=== PATIENT | male | born 1975 | race Caucasian/White ===

== ENCOUNTER 2023-03-14 21:28 | Emergency (ER) | payer OTHER ==
[2023-03-14 21:48] VITALS: BP 117/69; PULSE 64; RESP 18; TEMP 98.5; BMI 26.4
[2023-03-14] MEDS ORDERED: LIDOCAINE 5% TOPICAL PATCH TP ONE (22:19)
[2023-03-14] MEDS ORDERED: ACETAMINOPHEN 500 MG TABLET (FP) PO ONE (22:19)
[2023-03-14] MEDS ORDERED: KETOROLAC TROMETHAMINE 30 MG/1 ML VIAL IM ONE (22:19)
[2023-03-14] MEDS ORDERED: LIDOCAINE 5% TOPICAL PATCH ONE (22:47)
[2023-03-14] MEDS ORDERED: KETOROLAC TROMETHAMINE 30 MG/1 ML VIAL ONE (22:47)
[2023-03-14] MEDS ORDERED: ACETAMINOPHEN 500 MG TABLET (FP) ONE (22:49)
[2023-03-15] MEDS ORDERED: LIDOCAINE PATCH REMOVAL MC SCH (10:00)
== END 2023-03-15 00:08 | disposition home or self-care (01) ==
LOC: JER 21:28
PROC: 3E0233Z Introduction of Anti-inflammatory into Muscle, Percutaneous Approach (ICD-10-PCS; principal; 2023-03-14)
DX: M79.651 Pain in right thigh (principal); G57.01 Lesion of sciatic nerve, right lower limb; X50.0XXA Overexertion from strenuous movement or load, initial encounter
CPT/HCPCS: 99284-25